=== PATIENT | male | born 1955 | race Two or more races ===

== ENCOUNTER 2018-12-09 09:07 | Outpatient (CLI) | payer OTHER | END 2018-12-09 09:14 | disposition home or self-care (01) | LOC: LAB 09:07 | DX: D50.0 Iron deficiency anemia secondary to blood loss (chronic) (principal); E11.69 Type 2 diabetes mellitus with other specified complication; E78.00 Pure hypercholesterolemia, unspecified; E03.8 Other specified hypothyroidism; N39.0 Urinary tract infection, site not specified; E55.9 Vitamin D deficiency, unspecified; E51.8 Other manifestations of thiamine deficiency; N40.0 Benign prostatic hyperplasia without lower urinary tract symptoms ==

== ENCOUNTER 2019-01-18 08:26 | Outpatient (CLI) | payer OTHER | END 2019-01-18 12:57 | disposition home or self-care (01) | LOC: LAB 08:26 | DX: E11.69 Type 2 diabetes mellitus with other specified complication (principal) ==

== ENCOUNTER 2019-01-19 08:47 | Outpatient (CLI) | payer OTHER | END 2019-01-19 13:28 | disposition home or self-care (01) | LOC: LAB 08:47 | DX: Z12.11 Encounter for screening for malignant neoplasm of colon (principal); K62.5 Hemorrhage of anus and rectum; R10.9 Unspecified abdominal pain ==

== ENCOUNTER → 2019-04-07 09:23 | Outpatient (CLI) | payer OTHER | END | disposition home or self-care (01) | LOC: LAB 09:23 | DX: E78.49 Other hyperlipidemia (principal); I10 Essential (primary) hypertension ==

== ENCOUNTER 2019-04-08 09:03 | Outpatient (CLI) | payer OTHER | END 2019-04-08 15:22 | disposition home or self-care (01) | LOC: LAB 09:03 | DX: E78.49 Other hyperlipidemia (principal); E11.9 Type 2 diabetes mellitus without complications ==

== ENCOUNTER → 2019-10-30 | Outpatient (CLI) | payer OTHER | END | disposition home or self-care (01) | LOC: RAD 14:32 | DX: M16.12 Unilateral primary osteoarthritis, left hip (principal) ==

== ENCOUNTER 2019-12-01 08:17 | Outpatient (CLI) | payer OTHER | END 2019-12-01 08:22 | disposition home or self-care (01) | LOC: LAB 08:17 | DX: D64.89 Other specified anemias (principal); I10 Essential (primary) hypertension; E11.9 Type 2 diabetes mellitus without complications; E78.00 Pure hypercholesterolemia, unspecified; N39.0 Urinary tract infection, site not specified; E03.8 Other specified hypothyroidism; Z12.31 Encounter for screening mammogram for malignant neoplasm of breast; R19.5 Other fecal abnormalities; E55.9 Vitamin D deficiency, unspecified; R80.8 Other proteinuria ==

== ENCOUNTER 2019-12-04 09:59 | Outpatient (CLI) | payer OTHER | END 2019-12-04 10:13 | disposition home or self-care (01) | LOC: LAB 09:59 | DX: D64.89 Other specified anemias (principal); I10 Essential (primary) hypertension; E11.9 Type 2 diabetes mellitus without complications; E78.00 Pure hypercholesterolemia, unspecified; N39.0 Urinary tract infection, site not specified; E03.8 Other specified hypothyroidism; Z12.31 Encounter for screening mammogram for malignant neoplasm of breast; R19.5 Other fecal abnormalities; E55.9 Vitamin D deficiency, unspecified; R80.8 Other proteinuria; N40.0 Benign prostatic hyperplasia without lower urinary tract symptoms ==

== ENCOUNTER 2020-10-19 09:12 | Outpatient (CLI) | payer OTHER | END 2020-10-19 09:40 | disposition home or self-care (01) | LOC: RAD 09:12 | PROVIDERS: ATTEND Orthopaedic Surgery | DX: M16.0 Bilateral primary osteoarthritis of hip (principal) ==

== ENCOUNTER 2020-12-31 09:56 | Outpatient (CLI) | payer OTHER | END 2020-12-31 10:02 | disposition home or self-care (01) | LOC: LAB 09:56 | PROVIDERS: ATTEND Internal Medicine | DX: N40.0 Benign prostatic hyperplasia without lower urinary tract symptoms (principal); D64.89 Other specified anemias; I10 Essential (primary) hypertension; E11.9 Type 2 diabetes mellitus without complications; E78.00 Pure hypercholesterolemia, unspecified; N39.0 Urinary tract infection, site not specified; E03.8 Other specified hypothyroidism; R80.8 Other proteinuria; R19.5 Other fecal abnormalities ==

== ENCOUNTER 2021-01-01 11:37 | Outpatient (CLI) | payer OTHER | END 2021-01-01 11:47 | disposition home or self-care (01) | LOC: LAB 11:37 | PROVIDERS: ATTEND Internal Medicine | DX: D64.89 Other specified anemias (principal); I10 Essential (primary) hypertension; E11.9 Type 2 diabetes mellitus without complications; E78.00 Pure hypercholesterolemia, unspecified; N39.0 Urinary tract infection, site not specified; E03.8 Other specified hypothyroidism; R80.8 Other proteinuria; R19.5 Other fecal abnormalities; E55.9 Vitamin D deficiency, unspecified; N40.0 Benign prostatic hyperplasia without lower urinary tract symptoms ==

== ENCOUNTER 2021-09-10 13:32 | Outpatient (CLI) | payer OTHER | END 2021-09-10 13:34 | disposition home or self-care (01) | LOC: SONOGRAMA 13:32 → MAMO-SONO 14:00 | PROVIDERS: ATTEND Internal Medicine | DX: N18.2 Chronic kidney disease, stage 2 (mild) (principal); N28.89 Other specified disorders of kidney and ureter ==

== ENCOUNTER → 2021-09-17 08:40 | Outpatient (CLI) | payer OTHER | END | disposition home or self-care (01) | LOC: LAB 08:40 | PROVIDERS: ATTEND Internal Medicine | DX: N18.2 Chronic kidney disease, stage 2 (mild) (principal) ==

== ENCOUNTER 2022-02-18 07:30 | Outpatient (CLI) | payer OTHER | END 2022-02-18 07:37 | disposition home or self-care (01) | LOC: LAB 07:30 | PROVIDERS: ATTEND Internal Medicine | DX: D64.9 Anemia, unspecified (principal); E11.9 Type 2 diabetes mellitus without complications; E78.00 Pure hypercholesterolemia, unspecified; N39.0 Urinary tract infection, site not specified; E03.8 Other specified hypothyroidism; R80.8 Other proteinuria; Z12.11 Encounter for screening for malignant neoplasm of colon; E55.9 Vitamin D deficiency, unspecified; N40.0 Benign prostatic hyperplasia without lower urinary tract symptoms; U07.1 COVID-19 ==

== ENCOUNTER 2022-02-19 08:50 | Outpatient (CLI) | payer OTHER | END 2022-02-19 08:57 | disposition home or self-care (01) | LOC: LAB 08:50 | PROVIDERS: ATTEND Internal Medicine | DX: Z12.11 Encounter for screening for malignant neoplasm of colon (principal); R19.5 Other fecal abnormalities ==

== ENCOUNTER 2022-03-05 09:07 | Outpatient (CLI) | payer OTHER | END 2022-03-05 09:08 | disposition home or self-care (01) | LOC: LAB 09:07 | PROVIDERS: ATTEND Internal Medicine | DX: D64.9 Anemia, unspecified (principal); E11.9 Type 2 diabetes mellitus without complications; E78.00 Pure hypercholesterolemia, unspecified; N39.0 Urinary tract infection, site not specified; E03.8 Other specified hypothyroidism ==

== ENCOUNTER 2022-04-23 13:25 | Outpatient (CLI) | payer OTHER | END 2022-04-23 13:27 | disposition home or self-care (01) | LOC: RAD 13:25 | PROVIDERS: ATTEND Internal Medicine | DX: S90.452A Superficial foreign body, left great toe, initial encounter (principal) ==

== ENCOUNTER 2022-10-13 07:26 | Outpatient (CLI) | payer OTHER | END 2022-10-13 07:37 | disposition home or self-care (01) | LOC: LAB 07:26 | PROVIDERS: ATTEND Internal Medicine Nephrology | DX: N18.1 Chronic kidney disease, stage 1 (principal); I10 Essential (primary) hypertension; E11.21 Type 2 diabetes mellitus with diabetic nephropathy; R80.9 Proteinuria, unspecified ==

== ENCOUNTER 2022-12-01 06:55 | Outpatient (CLI) | payer OTHER | END 2022-12-01 07:03 | disposition home or self-care (01) | LOC: LAB 06:55 | PROVIDERS: ATTEND Internal Medicine | DX: E11.9 Type 2 diabetes mellitus without complications (principal); E78.00 Pure hypercholesterolemia, unspecified; E03.8 Other specified hypothyroidism; N39.0 Urinary tract infection, site not specified; R80.8 Other proteinuria; R19.5 Other fecal abnormalities; Z12.11 Encounter for screening for malignant neoplasm of colon; E55.9 Vitamin D deficiency, unspecified; N40.0 Benign prostatic hyperplasia without lower urinary tract symptoms ==

== ENCOUNTER 2023-01-19 06:43 | Outpatient (CLI) | payer OTHER | END 2023-01-19 06:52 | disposition home or self-care (01) | LOC: LAB 06:43 | PROVIDERS: ATTEND Internal Medicine | DX: D64.9 Anemia, unspecified (principal); E11.9 Type 2 diabetes mellitus without complications; E78.00 Pure hypercholesterolemia, unspecified; N39.0 Urinary tract infection, site not specified; E03.8 Other specified hypothyroidism ==

== ENCOUNTER 2023-03-10 | Outpatient (CLI) | payer OTHER | END 2023-03-10 00:15 | disposition home or self-care (01) | LOC: PPH VACUNA | PROVIDERS: ATTEND Emergency Medicine Pediatric Emergency Medicine | DX: Z23 Encounter for immunization (principal) ==

== ENCOUNTER 2023-09-24 06:48 | Outpatient (CLI) | payer OTHER ==
[2023-09-24 07:46] LABS: HEMATOCRIT 42.1 % (39.0-48.0); HEMOGLOBIN 14.7 g/dL (13-16.00); MEAN CELL VOLUME 92.4 fL (80.0-100.00); MEAN CORPUSCULAR HEMOGLOBIN 32.2 pg (27.00-32.0); MEAN CORPUSCULAR HGB CONC 34.8 g/dl (32.0-36.0); PLATELET COUNT 159 K/uL (150-450); RED BLOOD COUNT 4.56 M/uL (4.00-6.00); RED CELL DISTRIBUTION WIDTH 13.3 % (11.5-14.5)
[2023-09-24 08:01] LABS: URINE APPEARANCE Clear; URINE BILIRRUBIN Negative (NEGATIVE); URINE BLOOD Moderate; URINE COLOR Yellow; URINE GLUCOSE Negative (NEGATIVE); URINE LEUKOCYTE Negative; URINE NITRATE Negative; URINE PROTEIN 30 (NEGATIVE)
[2023-09-24 08:05] LABS: ALBUMIN 3.8 gm/dL (3.4-5.0); BILIRUBIN TOTAL 1.1 mg/dL (0.3-1.2); CALCIUM 9.5 mg/dL (8.5-10.1); CHOL HDL RATIO 2.5 (0-5.0); CREATININE SERUM 1.22 mg/dL (0.70-1.30); GFR 58.72; GLOBULINA 3.1 G/DL (2.4-3.5); POTASSIUM 3.81 mEq/L (3.5-5.1); TOTAL PROTEIN 6.9 gm/dL (6.4-8.2); TSH 0.521 uIU/mL (0.358-3.74)
[2023-09-24 08:05] LABS: URINE BACTERIA 12.5 uL (0.0-1933); URINE EPITHELIAL CELLS 2.1 uL (0.0-38.8); URINE RBC 34.3 uL (0.0-20.8); URINE WBC 2.9 uL (0.0-23.2)
[2023-09-24 08:44] LABS: PHOSPHOROUS 1.9 mg/dL (2.5-4.9)
== END 2023-09-24 06:49 | disposition home or self-care (01) ==
LOC: LAB 06:48
DX: D64.9 Anemia, unspecified (principal); E11.9 Type 2 diabetes mellitus without complications; E78.00 Pure hypercholesterolemia, unspecified; N39.0 Urinary tract infection, site not specified; E03.8 Other specified hypothyroidism; N18.31 Chronic kidney disease, stage 3a

== ENCOUNTER 2023-09-24 14:34 | Emergency (ER) | payer OTHER ==
[~2023-09-24] VITALS: Ht 177.8 cm; Wt 88.5 kg
[2023-09-24 17:26] LABS: HEMATOCRIT 43.4 % (39.0-48.0); HEMOGLOBIN 15.2 g/dL (13-16.00); MEAN CELL VOLUME 92.9 fL (80.0-100.00); MEAN CORPUSCULAR HEMOGLOBIN 32.5 pg (27.00-32.0); PLATELET COUNT 148 K/uL (150-450); RED BLOOD COUNT 4.67 M/uL (4.00-6.00); RED CELL DISTRIBUTION WIDTH 13.3 % (11.5-14.5)
[2023-09-24 18:03] LABS: ALBUMIN 3.8 gm/dL (3.4-5.0); BILIRUBIN TOTAL 1.12 mg/dL (0.3-1.2); CREATININE SERUM 1.31 mg/dL (0.70-1.30); GFR 54.09; GLOBULINA 3.8 G/DL (2.4-3.5); PHOSPHOROUS 2.4 mg/dL (2.5-4.9); POTASSIUM 3.55 mEq/L (3.5-5.1); TOTAL PROTEIN 7.6 gm/dL (6.4-8.2); TSH 1.06 uIU/mL (0.358-3.74)
== END 2023-09-24 19:31 | disposition home or self-care (01) ==
LOC: ER 14:34
PROVIDERS: General Practice
DX: Z00.01 Encounter for general adult medical examination with abnormal findings (principal); E83.39 Other disorders of phosphorus metabolism

== ENCOUNTER → 2023-10-12 06:56 | Outpatient (CLI) | payer OTHER ==
[2023-10-12 09:08] LABS: BILIRUBIN TOTAL 0.99 mg/dL (0.3-1.2); CALCIUM 9.8 mg/dL (8.5-10.1); CREATININE SERUM 1.1 mg/dL (0.70-1.30); GFR 66.18; GLOBULINA 3.3 G/DL (2.4-3.5); POTASSIUM 3.85 mEq/L (3.5-5.1); TOTAL PROTEIN 7.3 gm/dL (6.4-8.2)
== END | disposition home or self-care (01) ==
LOC: LAB 06:56
PROVIDERS: ATTEND Internal Medicine
DX: E11.9 Type 2 diabetes mellitus without complications (principal); N18.31 Chronic kidney disease, stage 3a

== ENCOUNTER 2024-09-05 14:00 | Outpatient (CLI) | payer OTHER | END 2024-09-05 14:10 | disposition home or self-care (01) | LOC: SONOGRAMA 14:00 | PROVIDERS: ATTEND Internal Medicine | DX: E04.2 Nontoxic multinodular goiter (principal) ==

== ENCOUNTER → 2025-02-03 07:57 | Outpatient (CLI) | payer OTHER ==
[2025-02-03 09:27] LABS: HEMOGLOBIN 15.8 g/dL (13-16.00); MEAN CORPUSCULAR HEMOGLOBIN 31.7 pg (27.00-32.0); MEAN CORPUSCULAR HGB CONC 34.5 g/dl (32.0-36.0); PLATELET COUNT 184 K/uL (150-450); RED BLOOD COUNT 4.99 M/uL (4.00-6.00); RED CELL DISTRIBUTION WIDTH 13.4 % (11.5-14.5)
[2025-02-03 09:31] LABS: PH,URINE 5.5 (5.0-8.0); URINE APPEARANCE Clear; URINE BILIRRUBIN Negative (NEGATIVE); URINE BLOOD Negative; URINE COLOR Yellow; URINE GLUCOSE Negative (NEGATIVE); URINE KETONE Negative (NEGATIVE); URINE LEUKOCYTE Negative; URINE NITRATE Negative; URINE PROTEIN Negative (NEGATIVE); URINE UROBILINOGEN 0.2 E.U./dl
[2025-02-03 10:05] LABS: ALBUMIN 4.1 gm/dL (3.4-5.0); CALCIUM 9.5 mg/dL (8.5-10.1); CREATININE SERUM 1.06 mg/dL (0.70-1.30); CREATININE URINE RANDOM 50.6 MG/DL (30-125); GFR 68.87; PHOSPHOROUS 2.8 mg/dL (2.5-4.9); POTASSIUM 4.22 mEq/L (3.5-5.1); URIC ACID 4.7 mg/dL (3.5-8.5)
[2025-02-03 10:12] LABS: URINE BACTERIA 2.4 uL (0.0-1933); URINE EPITHELIAL CELLS 0.3 uL (0.0-38.8); URINE RBC 1.6 uL (0.0-20.8); URINE WBC 1.5 uL (0.0-23.2)
== END | disposition home or self-care (01) ==
LOC: LAB 07:57
PROVIDERS: ATTEND Internal Medicine Nephrology
DX: N18.2 Chronic kidney disease, stage 2 (mild) (principal); I10 Essential (primary) hypertension; E11.22 Type 2 diabetes mellitus with diabetic chronic kidney disease; R80.9 Proteinuria, unspecified

== ENCOUNTER 2025-10-02 10:58 | Outpatient (CLI) | payer OTHER | END 2025-10-02 11:01 | disposition home or self-care (01) | LOC: RAD 10:58 | PROVIDERS: ATTEND Orthopaedic Surgery | DX: M16.0 Bilateral primary osteoarthritis of hip (principal) ==

== ENCOUNTER 2025-11-13 06:11 | Outpatient (CLI) | payer OTHER ==
[2025-11-13 06:44] LABS: BASO % 0.9 % (0.1-1.2); EOS # 0.16 (0.04-0.54); EOS % 2.7 % (0.7-7.0); LYMPH # 1.57 (1.18-3.74); LYMPH % 26.9 % (19.3-53.1); MEAN PLATELET VOLUME 9.60 fl (9.4-12.4); MONO # 0.43 (0.24-0.82); MONO % 7.4 % (4.7-12.5); NEUT # 3.60 (1.56-6.13); NEUT % 61.6 % (34.0-71.1); RED CELL DISTRIBUTION WIDTH 12.0 % (11.6-14.4)
[2025-11-13 06:49] LABS: URINE APPEARANCE Clear; URINE BILIRRUBIN Negative (NEGATIVE); URINE BLOOD Small; URINE COLOR Yellow; URINE GLUCOSE Negative (NEGATIVE); URINE KETONE Negative (NEGATIVE); URINE LEUKOCYTE Negative; URINE NITRATE Negative; URINE PROTEIN Negative (NEGATIVE); URINE UROBILINOGEN 0.2 E.U./dl
[2025-11-13 06:51] LABS: URINE BACTERIA 9.1 uL (0.0-1933); URINE EPITHELIAL CELLS 1.5 uL (0.0-38.8); URINE RBC 5.2 uL (0.0-20.8); URINE WBC 3.9 uL (0.0-23.2)
[2025-11-13 06:56] LABS: URINE CAST 0.00 uL (0.0-1.40)
[2025-11-13 07:29] LABS: ALT/SGPT 49.0 U/L (12-78); AST/SGOT 26.0 U/L (15-37); BILIRUBIN TOTAL 0.97 mg/dL (0.3-1.2); BUN CREA RATIO 18.0 (7.0-25.0); CREATININE SERUM 1.05 mg/dL (0.70-1.30); GFR 69.43; GLOBULINA 3.0 G/DL (2.4-3.5); GLUCOSE FASTING 116.0 mg/dL (65-100); OSMOLALITY SERUM 288.0 MOSM/KG (275-295)
== END 2025-11-13 06:18 | disposition home or self-care (01) ==
LOC: LAB 06:11
DX: R31.9 Hematuria, unspecified (principal)

== ENCOUNTER 2025-11-13 07:14 | Outpatient (CLI) | payer OTHER | END 2025-11-13 07:16 | disposition home or self-care (01) | LOC: RAD 07:14 | DX: N20.0 Calculus of kidney (principal); N20.1 Calculus of ureter; R31.9 Hematuria, unspecified ==